=== PATIENT | male | born 1940 | race Caucasian/White ===

== ENCOUNTER 2018-12-07 10:08 | Emergency (ER) | payer OTHER ==
[~2018-12-07] VITALS: Ht 180.3 cm; Wt 113.4 kg
[~2018-12-07 10:08] MED LIST: ADULT LOW DOSE81 MG PO; AMLODIPINE BESY10 MG PO; COUMADIN 10MG T10 M1 PO; DIABETA 5MG TABL5 MG PO; FEOSOL325 MG PO; GLYBURIDE; LISINOPRIL10 MG PO; LISINOPRIL20 MG PO; LOPRESSOR100 MG PO; METFORMIN; PLAVIX 75 MG TA75 MG PO; SIMVASTATIN10 MG PO; ZANTAC 150MG T150 M1 PO
[2018-12-07] MEDS ORDERED: HYDROCODONE-AP1 EAC6 PO ×2 (11:11→11:14)
[2018-12-07 11:28] VITALS: BP 117/62
== END 2018-12-07 11:29 | disposition home or self-care (01) ==
LOC: M.ERS 10:08
DX: M17.12 Unilateral primary osteoarthritis, left knee (principal); E11.9 Type 2 diabetes mellitus without complications; E78.00 Pure hypercholesterolemia, unspecified; Z88.0 Allergy status to penicillin; Z88.2 Allergy status to sulfonamides; Z88.7 Allergy status to serum and vaccine

== ENCOUNTER 2019-11-12 20:45 | Inpatient (IN) | payer OTHER ==
[~2019-11-12] VITALS: Ht 177.8 cm; Wt 108.4 kg
[~2019-11-12 20:45] MED LIST changes: -COUMADIN 10MG T10 M1 PO; +COUMADIN 5 MG TA5 M1 PO; -DIABETA 5MG TABL5 MG PO; +GLIPIZIDE 10 MG10 MG PO; +HYDROCODONE-AP1 EAC6 PO; -LOPRESSOR100 MG PO; +LOPRESSOR50 PO; -SIMVASTATIN10 MG PO; +SIMVASTATIN80 MG PO
[2019-11-12] MEDS ORDERED: IRON325 M1 (20:56)
[2019-11-12] MEDS ORDERED: COLACE100 MG (20:56)
[2019-11-12] MEDS ORDERED: LISINOPRIL2.5 MG PO (20:56)
[2019-11-12] MEDS ORDERED: METFORMIN HCL500 MG PO (20:57)
[2019-11-12] MEDS ORDERED: ASA81BEC PO (20:57)
[2019-11-12] MEDS ORDERED: PROAIR HFA8.5 GM PO (20:57)
[2019-11-12] MEDS ORDERED: NORVASC10 MG (20:58)
[2019-11-12 20:59] VITALS: BP 141/58
[2019-11-12 21:15] LABS: ABSOLUTE LYMPHOCYTES 0.2 thou/uL (0.8-5.3); ABSOLUTE MONOCYTES 1.3 thou/uL (0.0-1.2); ABSOLUTE NEUTROPHILS 8.9 thou/uL (1.6-8.1); BASOPHILS 0.3 %; HEMATOCRIT 45.7 % (42.0-52.0); HEMOGLOBIN 15.5 gm/dL (14.0-18.0); LYMPHOCYTES 2.4 %; MCH 28.3 pg (26.0-34.0); MCHC 33.9 g/dL (28.0-37.0); MCV 83.5 fL (80.0-100.0); MONOCYTES 12.3 %; MPV 7.5 fl. (7.2-11.1); NUCLEATED RBCS 0 /100WBC; PLATELET COUNT* 171 thou/uL (150-400); RBC 5.47 mil/uL (4.50-6.00); RDW-CV 15.3 % (10.5-14.5); WBC 10.4 thou/uL (4.0-11.0)
[2019-11-12 21:28] LABS: CALCIUM 8.3 mg/dL (8.5-10.1); CREATININE 1.5 mg/dL (0.6-1.3); POTASSIUM 3.9 mmol/L (3.5-5.1)
[2019-11-12 21:29] LABS: INR 1.9; PROTIME 19.1 Seconds (9.20-11.50)
[2019-11-12 21:32] LABS: ALBUMIN 3.5 g/dL (3.4-5.0); TOTAL BILIRUBIN 0.8 mg/dL (<0.1-1.0); TOTAL PROTEIN 7.7 g/dL (6.4-8.2)
[2019-11-12 22:19] LABS: URINE BILIRUBIN NEGATIVE (Negative); URINE BLOOD 3+ (Negative); URINE CLARITY CLEAR; URINE COLOR YELLOW; URINE GLUCOSE-RANDOM 3+ (Negative); URINE KETONES TRACE (Negative); URINE LEUKOCYTES-REFLEX NEGATIVE (Negative); URINE NITRITE-REFLEX NEGATIVE (Negative); URINE PROTEIN 2+ (Negative); URINE SPECIFIC GRAVITY 1.025 (1.005-1.030); URINE UROBILINOGEN 0.2 E.U./dl (0.2-1.0)
[2019-11-12 22:30] LABS: BACTERIA-REFLEX 1-9 Few /HPF (None Seen); HYALINE CASTS 0-3 Few /LPF (None Seen); MUCUS None Seen strn/LPF (None Seen); SQUAMOUS 0-3 Few /LPF (0-3); URINE RBC >20 Many /HPF (0-2)
[2019-11-12 22:31] LABS: CRYSTALS None Seen /LPF (None Seen); URINE WBC-REFLEX 0-5 Rare /HPF (0-5)
[2019-11-13] VITALS (7 sets, daily range): BP systolic 94–140; BP diastolic 48–66
[2019-11-13] MEDS ORDERED: COUMADIN7.5 MG PO (09:59)
[2019-11-13] MEDS ORDERED: CLARITIN10 MG PO (10:00)
[2019-11-13 13:19] LABS: INR 1.9; PROTIME 18.9 Seconds (9.20-11.50)
--- NOTE | 2019-11-13 13:57 | EKG ---
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1940 Requested By: Owen Lyn Order Number: [id number] MD: Celso Duncan Measurements Intervals [place] Rate: 118 P: 42 MT: 191 QRS: 73 QRSD: 95 T: 21 QT: 340 QTc: 477 Interpretive Statements Sinus tachycardia Atrial premature complex Inferior infarct, old possible Anterior infarct, old possible No previous ECG available for comparison Electronically Signed On 11-13-2019 10:00:49 [employer] by Celso Duncan [email or web address] <ELECTRONICALLY SIGNED> By: Celso Duncan MD, [facility] 11/13/19999 57 57 Celso Duncan MD, [facility] /EPI
--- NOTE | 2019-11-13 18:38 | CON ---
[facility] [address] [place] [address] CONSULTATION Name: MAKENNA WATSON Room: [address] IN M.R.#: [id number] Admission: 11/12/19 Attend Phys: Toni Lozada MD Discharge: Date of : 40 Report #: [id number] THIS REPORT FOR: //name// cc: LIANG Whatley family physician/PCP LIANG - No family physician/PCP ~ THIS REPORT FOR: //name// CC: [facility] physician/PCP Toni Lozada DATE OF SERVICE: 11/13/2019 HISTORY OF PRESENT ILLNESS: This is a 79-year-old male patient who was seen by me for an episode he had yesterday. He indicated that he was walking and suddenly he realized he fell. He did not have any palpitation or chest pain preceding it. From the description, it does not look like that he felt too much dizzy either and just fell. He has never had this kind of episode before. Even this morning, he said he was not very balanced. REVIEW OF SYSTEMS: Indicate that he has cardiac problems. He usually goes to [place] for that. He had his bypass surgery in [facility]. He had some knee problems. He has high blood pressure. He is a diabetic. He says his blood sugar goes to 70s some time, but not very often. He does not know what his blood sugar was when it happened. He is on anticoagulation because of what he described as atrial fibrillations diagnosis in the past. Rest of the 14-point review of system was noncontributory and he is not complaining of any new eye, ENT, cardiac, respiratory, GI, , musculoskeletal, constitutional, dermatological, hematological, psychiatric, throat, allergic symptom associated with present symptomatology. PAST MEDICAL HISTORY: Positive for cardiac problems. SOCIAL HISTORY: The patient does not smoke or drink alcohol. PHYSICAL EXAMINATION: NEUROLOGIC: The patient's examination indicates he is alert, responsive, able to follow simple and complex command. His speech, concentration, fund of knowledge and memory is at his baseline. Cranial nerve examination 2-12 does not show any definite abnormality. His neuromuscular examination as checked for strength, sensation, reflexes and tone is symmetrical. There is no meningeal sign. There is no carotid bruit. The patient is a well-built individual. His hearing and vision is adequate. He has no thyroid mass. There is no carotid bruit. Pulses are somewhat difficult to feel. There is no edema, cyanosis or jaundice. PULMONARY: No respiratory difficulty or rhonchi was noticed. CARDIAC: The patient states that he has a prior [place] [address] CONSULTATION Name: MAKENNA WATSON Room: [address] IN ..#: [id number] Admission: 11/12/19 Attend Phys: Toni Lozada MD Discharge: Date of : 40 Report #: [id number] VITAL SIGNS: His blood pressure is 102/61, respiration is 20, pulse is 81, temperature is 98.1. His blood pressure has gone as low as 94 during this admission. IMPRESSION: I suspect the patient's symptom is probably because of systemic causes, especially because his blood pressure is going that low. That will be quite low for the patient of his size. However, there are few things which will indicate that we should do neurological workup in this patient. He indicated that he was still ataxic in the morning. He has a pretty significant history of atherosclerotic disease in the past. He is anticoagulated, but not fully anticoagulated as his INR is only 1.9. Because of that, I think we should exclude central nervous system pathology, even if it is considered clinically less likely. RECOMMENDATIONS: 1. I will suggest doing an MRI in this patient. 2. He is already on anticoagulation and we will see if MRI shows any acute changes. If MRI is negative, I do not think further neurological workup will be indicated and main workup will be systemic causes including cardiac causes as well as his hypertension and monitoring his blood sugar. Thank you very much for this referral. <ELECTRONICALLY SIGNED> By: Felix Mahoney MD 11/13/19 [id number] 1000Parsheryl Mahoney MD /nt
[2019-11-14] VITALS: BP 102/61
[2019-11-14 04:00] VITALS: BP 147/75
[2019-11-14 06:22] LABS: ABSOLUTE BASOPHILS 0.1 thou/uL (0.0-0.2); ABSOLUTE LYMPHOCYTES 1.8 thou/uL (0.8-5.3); ABSOLUTE MONOCYTES 0.9 thou/uL (0.0-1.2); ABSOLUTE NEUTROPHILS 3.4 thou/uL (1.6-8.1); EOSINOPHILS 0.8 %; HEMOGLOBIN 14.9 gm/dL (14.0-18.0); LYMPHOCYTES 29.2 %; MCH 28.3 pg (26.0-34.0); MCHC 33.9 g/dL (28.0-37.0); MCV 83.5 fL (80.0-100.0); MONOCYTES 14.4 %; MPV 7.5 fl. (7.2-11.1); NUCLEATED RBCS 0 /100WBC; PLATELET COUNT* 158 thou/uL (150-400); POLYS 54.6 %; RBC 5.27 mil/uL (4.50-6.00); WBC 6.3 thou/uL (4.0-11.0)
[2019-11-14 06:26] LABS: CALCIUM 8.1 mg/dL (8.5-10.1); CREATININE 1.2 mg/dL (0.6-1.3); POTASSIUM 3.6 mmol/L (3.5-5.1)
[2019-11-14 06:28] LABS: INR 2.2; PROTIME 21.7 Seconds (9.20-11.50)
[2019-11-14 07:29] LABS: ESR (SEDRATE) 24 mm/hr (0-20)
[2019-11-14 08:09] VITALS: BP 120/69
[2019-11-14 12:26] VITALS: BP 119/63; BP 119/65
[2019-11-14 12:27] VITALS: BP 127/55
[2019-11-14] MEDS ORDERED: TAPAZOLE10 MG PO (13:25)
--- NOTE | 2019-11-14 14:23 | 2DMMODE ---
[place] [address] 2 D/M-MODE ECHOCARDIOGRAM Name: MAKENNA WATSON Room: [address] IN [facility]#: [id number] Admission: 11/12/19 Attend Phys: Toni Lozada, Discharge: Date of : 40 Date of Service: 11/14/19 1422 Report #: [id number] THIS REPORT FOR: cc: FAM - No family physician/PCP FAM - No family physician/PCP Philip Meyer MD [facility] ~ APPROVED REPORT Study performed: 11/13/2019 11:18:53 EXAM: Comprehensive 2D, Doppler, and color-flow Echocardiogram Patient Location: In-Patient Room #: [facility] Status: routine BSA: 2.25 HR: 82 bpm BP: 102/61 mmHg Rhythm: NSR Other Information Study Quality: Good Indications dIZZINESS 2D Dimensions IVSd: 14.03 (7-11mm) LVOT Diam: 21.06 (18-24mm) LVDd: 39.21 mm PWd: 7.75 (7-11mm) Ascending Ao: 28.82 (22-36mm) LVDs: 25.84 (25-40mm) Aortic Root: 33.58 mm Volumes Left Atrial Volume (Systole) [place] ESV Index: 31.50 mL/m2 Aortic Valve AoV Peak Adolfo.: 1.44 m/s AO Peak Gr.: 8.25 mmHg LVOT Max P.97 mmHg AO Mean Gr.: 4.27 mmHg LVOT Mean P.77 mmHg LVOT Max V: 1.50 m/s AO V2 VTI: 24.97 cm LVOT Mean V: 1.02 m/s BRANDON (VTI): 3.68 cm2 LVOT V1 VTI: 26.39 [place] [address] 2 D/M-MODE ECHOCARDIOGRAM Name: MAKENNA WATSON Room: [address] IN [facility].#: [id number] Admission: 11/12/19 Attend Phys: Toni Lozada, Discharge: Date of : 40 Date of Service: 11/14/19 1422 Report #: [id number] Mitral Valve E/A Ratio: 0.76 MV Decel. Time: 296.29 ms MV E Max Adolfo.: 0.69 m/s MV PHT: 85.92 ms MVA (PHT): 2.56 cm2 TDI E/Lateral E': 6.90 E/Medial E': 9.86 Medial E' Adolfo.: 0.07 m/s Lateral E' Adolfo.: 0.10 m/s Pulmonary Valve PV Peak Adolfo.: 1.14 m/s PV Peak Gr.: 5.17 mmHg Tricuspid Valve RAP Estimate: 5.00 mmHg TR Peak Gr.: 21.91 mmHg RVSP: 27.00 mmHg PA Pressure: 27.00 mmHg Left Ventricle The left ventricle is normal size. There is normal LV segmental wall motion. Mild septal hypertrophy is present. Left ventricular systolic function is normal. LVEF is 60-65%. Grade I - abnormal relaxation pattern. Right Ventricle The right ventricle is normal size. The right ventricular systolic function is normal. Atria Left atrium is mildly dilated. The right atrium size is normal. Aortic Valve Mild aortic valve sclerosis. No aortic regurgitation is present. There is no aortic valvular stenosis. Mitral Valve The mitral valve is normal in structure. There is no mitral valve regurgitation noted. No evidence of mitral valve stenosis. Tricuspid Valve The tricuspid valve is normal in structure. Trace tricuspid regurgitation[place] [address] 2 D/M-MODE ECHOCARDIOGRAM Name: SHIRLEYMAKENNA Jass Room: [address]#: [id number] Admission: 11/12/19 Attend Phys: Toni Lozada, Discharge: Date of : 40 Date of Service: 11/14/19 1422 Report #: [id number] Pulmonic Valve The pulmonary valve is normal in structure. Trace pulmonic regurgitation. Great Vessels The aortic root is normal in size. IVC is normal in size and collapses >50% with inspiration. Pericardium There is no pericardial effusion. <Conclusion> The left ventricle is normal size. Mild septal hypertrophy is present. Left ventricular systolic function is normal. LVEF is 60-65%. Grade I - abnormal relaxation pattern. Left atrium is mildly dilated. Mild aortic valve sclerosis. There is no aortic valvular stenosis. Trace tricuspid regurgitation. No pulmonary hypertension. IVC is normal in size and collapses >50% with inspiration. <ELECTRONICALLY SIGNED> By: Philip Meyer MD, FACC 11/14/19 142 21 142 Philip Meyer MD, FACC /INF
[2019-11-14] MEDS ORDERED: MIRALAX119 GM PO (14:29)
[2019-11-14] MEDS ORDERED: COLACE100 MG PO (14:29)
[2019-11-14 14:32] VITALS: BP 127/55
== END 2019-11-14 15:10 | disposition home or self-care (01) | DRG 312 ==
LOC: M.ERS 20:45 → M.TBA-ER 23:39 → M.2W 23:39
PROVIDERS: Family Medicine; Internal Medicine; ADMIT Internal Medicine
DX: I95.1 Orthostatic hypotension (principal); I12.9 Hypertensive chronic kidney disease with stage 1 through stage 4 chronic kidney disease, or unspecified chronic kidney disease; E11.22 Type 2 diabetes mellitus with diabetic chronic kidney disease; N18.3 Chronic kidney disease, stage 3 (moderate); I25.10 Atherosclerotic heart disease of native coronary artery without angina pectoris; E05.90 Thyrotoxicosis, unspecified without thyrotoxic crisis or storm; I48.0 Paroxysmal atrial fibrillation; E78.5 Hyperlipidemia, unspecified; E78.00 Pure hypercholesterolemia, unspecified; M19.90 Unspecified osteoarthritis, unspecified site; Z88.0 Allergy status to penicillin; Z88.2 Allergy status to sulfonamides; Z88.7 Allergy status to serum and vaccine; Z90.49 Acquired absence of other specified parts of digestive tract; Z95.5 Presence of coronary angioplasty implant and graft; Z95.1 Presence of aortocoronary bypass graft; Z79.01 Long term (current) use of anticoagulants; Z79.84 Long term (current) use of oral hypoglycemic drugs; Z79.82 Long term (current) use of aspirin; Z79.899 Other long term (current) drug therapy; Z87.891 Personal history of nicotine dependence; Z82.49 Family history of ischemic heart disease and other diseases of the circulatory system